=== PATIENT | male | born 1950 | race Caucasian/White ===

== ENCOUNTER 2021-03-20 10:15 | Emergency (ER) | payer BC, SELFPAY ==
[2021-03-20 10:16] VITALS: BP 171/83; PULSE 96; RESP 16; TEMP 36.8; O2SAT 99; BMI 23.7
--- NOTE | 2021-03-20 10:33 | ED.VIS.LOWEX ---
HPI History of Present Illness Chief Complaint: Lower Extremity Injury Informant: patient Narrative Narrative: Patient presents with left anterior proximal thigh pain. It started 2 days ago. He was stepping down off of a ladder with his right foot and his left leg was flexed. He states that when he came down he felt a pain in the proximal thigh area. It radiates around into the back and lateral hip area. Is worse when he puts weight on it. He states that when he sits and actually feels better. He has been assisting his ambulation with crutches to help with the pain. He did take some anti-inflammatories over the weekend as well. He denies any direct falls onto the hip. He denies any swelling. PFSH PFSH Allergy/AdvReac Type Severity Reaction Status Date / Time No Known Allergies Allergy Verified 03/20/21 10:18 Social History Smoking Status: Current some day smoker ROS ROS ED Constitutional Constitutional ED: Denies chills or fever(s) Eyes Eyes: Denies blurry vision, change in vision or diplopia ENT ENT ED: Denies ear pain, rhinorrhea or sore throat Cardiovascular Cardiovascular: Denies chest pain or palpitations Respiratory/Chest Respiratory/Chest: Denies cough, dyspnea or sputum Gastrointestinal Gastrointestinal: Denies abdominal pain, diarrhea, nausea or vomiting Genitourinary Genitourinary ED: Denies dysuria, hematuria or urinary frequency Musculoskeletal Musculoskeletal: Reports other Details: Left thigh pain Integumentary Denies change in pigmentation or rash Neurologic Neurologic: Denies headache(s), numbness or weakness Psychiatric Psychiatric: Denies anxiety or depression Endocrine Endocrinology: Denies polydipsia or polyuria EXAM Physical Exam Const Vital Signs: 03/20/21 10:16 Temperature 98.3 F Temperature Source Temporal Pulse Rate 96 Respiratory Rate 16 Blood Pressure 171/83 H Blood Pressure Mean 112 Pulse Ox 99 Oxygen Delivery Method Room Air Positive well nourished and well developed General Appearance ED: well developed HEENT normocephalic and atraumatic Eyes PERRL Back/Spine Lumbar Spine / Lower Back: Negative for lumbar spinal tenderness Extremity normal to inspection and full ROM Extremity Narrative: The patient has no tenderness to the thigh. There is no swelling. No palpable cords are felt. He has no hip tenderness. He does have good range of motion and is able to get from a seated to standing position without difficulty. General Extremety ED: Yes weight-bearing difficulty; Negative for edema General Extremity: weight-bearing difficulty; Negative for edema Neuro oriented x3 and CN's II-XII intact bilaterally Sensorium / Orientation: alert Motor Exam: strength 5/5 throughout Psych mental status grossly normal Skin Lesions: no lesions Rashes: no rashes MDM MDM MDM Narrative Medical decision making narrative: The patient had an ultrasound which shows no evidence of DVT. I did perform an x-ray of the left hip and there is a sclerosis in the region of the left posterior acetabulum with a concern for a fracture. However, I did perform a CT and there are no fracture seen. Patient likely has a muscular strain. He will continue nonsteroidals and ice at home. Radiography Diagnostic Testing: Radiology Impression Hip/Pelvis X-Ray 03/20/21 10:37 IMPRESSION: Band of sclerosis in the region of the left posterior acetabulum, possible fracture. 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 Electronically Signed: Luke Limon MD at 11:16 EDT Tel , Service support , Lower Extremity CT 03/20/21 11:28 IMPRESSION: No acute fracture or subluxation. Electronically Signed: Juan Alberto Torres MD ([facility]) at 11:54 EDT , Service support , Discharge Plan Triage Chief Complaint: Lower Extremity Injury ED Provider: Saúl Izaguirre Dx/Rx/DC Orders Clinical Impression: Muscle strain of left thigh Instructions: ED Hip Strain Primary Care Provider: Janie Lea NP Referrals: Janie Lea NP, [employer] [Primary Care Provider] - Disposition Disposition: Home, self care
--- NOTE | 2021-03-20 10:35 | VDLE_ITS ---
Reason For Study: Pain Procedure LEFT This is a venous duplex using B-mode, color GSV is normal. flow and spectral Doppler. CFV is compressible, spontaneous, phasic, Exam performed portable in ED. competent, and demonstrates normal A preliminary report was called and/or faxed augmentation. to [facility]. FV is compressible, spontaneous, phasic, competent and demonstrates normal augmentation. POP V is compressible, spontaneous, phasic, competent and demonstrates normal augmentation. T/P Trunk is compressible. PTV is compressible. LT PerV is compressible. VL/Venous Duplex US, Unilateral Interpretation Summary There is no evidence of left lower extremity deep vein thrombosis. Left great s aphenous vein appears patent and compressible segmentally. Ordering Physician: Saúl Izaguirre Performed By: Fani Knight RVT
--- NOTE | 2021-03-20 10:37 | RAD_ITS ---
STUDY: X-RAY - PELVIS AND LEFT HIP REASON FOR EXAM: Left hip pain, injury on Saturday. TECHNIQUE: 2 views of the pelvis and hip. COMPARISON: None. FINDINGS: Normal visualized soft tissue structures. Normal bilateral iliac wings, sacroiliac joints and visualized sacrum. Normal bilateral superior and inferior pubic rami. Normal pubic symphysis. Normal bilateral ischial tuberosities. There is a small left femoral cam lesion. There is a band of sclerosis in the region of the posterior left acetabulum. There is mild joint space narrowing of the left hip joint. RAD/HIP, UNI W/ Pelvis 2-3 Views IMPRESSION: Band of sclerosis in the region of the left posterior acetabulum, possible fracture. 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 Electronically Signed: Luke Limon MD at 11:16 EDT Tel , Service support ,
--- NOTE | 2021-03-20 11:28 | CT_ITS ---
EXAM: CT LEFT LOWER EXTREMITY WITHOUT INTRAVENOUS CONTRAST, HIP CLINICAL INDICATION: left hip pain TECHNIQUE: Helically acquired images were obtained of the left hip without intravenous contrast. This CT exam was performed using one or more of the following dose reduction techniques: automated exposure control, adjustment of the mA and/or kV according to patient size, and/or use of iterative reconstruction technique. This report was created using [employer] report generation technology. COMPARISON: Hip x-ray earlier today. FINDINGS: BONES/JOINTS: Unremarkable. No acute fracture. No subluxation. Normal alignment. Preservation of the joint space. No suspicious sclerotic or destructive changes. SOFT TISSUES: Atherosclerosis of the femoral artery. Diverticulosis of the sigmoid colon. No soft tissue swelling or gas. No radiopaque foreign body. CT/Extremity Lower without Contra IMPRESSION: No acute fracture or subluxation. Electronically Signed: Juan Alberto Torres MD ([facility]) at 11:54 EDT , Service support ,
[2021-03-20 12:29] VITALS: BP 157/76; PULSE 84; RESP 16; O2SAT 98
== END 2021-03-20 12:30 | disposition home or self-care (01) ==
PROVIDERS: Emergency Provider Emergency Medicine; PCP Nurse Practitioner Primary Care
DX: S76.912A Strain of unspecified muscles, fascia and tendons at thigh level, left thigh, initial encounter (principal); X50.9XXA Other and unspecified overexertion or strenuous movements or postures, initial encounter; Y93.9 Activity, unspecified; Y92.89 Other specified places as the place of occurrence of the external cause; Y99.9 Unspecified external cause status; M16.12 Unilateral primary osteoarthritis, left hip; F17.200 Nicotine dependence, unspecified, uncomplicated
CPT/HCPCS: 73502; 73700; 93971; 99282